=== PATIENT | female | born 1995 | race Caucasian/White ===

== ENCOUNTER 2018-12-02 09:24 | Emergency (ER) | payer OTHER, MEDICAID, SELFPAY ==
[2018-12-02 09:31] VITALS: BP 108/65; PULSE 97; RESP 18; TEMP 37.1; O2SAT 98; BMI 44.0
--- NOTE | 2018-12-02 09:31 | ED_ITS ---
HPI - Wound/Laceration General Chief Complaint: Wound/Laceration Stated Complaint: replace gauze in surgical incision Time Seen by Provider: 12/02/18 09:30 Source: patient Mode of arrival: ambulatory Limitations: no limitations History of Present Illness HPI narrative: Patient is a 23-year-old female who presents need for dressing change after pilonidal cyst removal 11/18/2018 in [place]. She is scheduled see her surgeon tomorrow. She has packing. She has had significant drainage and foul smell from it. She has no fevers no surrounding erythema. Related Data Previous Rx's Medication Instructions Recorded hydrocodone-acetaminophen 0 tab PO Q6HP PRN #15 tab 02/23/17 ondansetron [Zofran ODT] 4 mg SUBLINGUAL Q6HP PRN #20 odt 02/23/17 Allergies Allergy/AdvReac Type Severity Reaction Status Date / Time IV IODINE Allergy Unknown Uncoded 06/27/17 12:33 Review of Systems Review of Systems Narrative: GENERAL: Denies chills,fever HEENT: Denies throat pain RESPIRATORY: Denies dyspnea, cough, wheezing CARDIOVASCULAR: Denies chest pain, palpitations GASTROINTESTINAL: Denies nausea, vomiting MUSCULOSKELETAL: Denies extremity pain, injury SKIN: See HPI NEUROLOGIC: Denies weakness, dizziness, headache, numbness 8 point review of systems is negative except for those stated above and HPI [facility] Medical History Pilonidal cyst (Acute) Social History (Updated 12/02/18 @ 10:02 by Sahra Sy DO) Smoking Status: Never smoker alcohol intake: never substance use type: does not use Social History Smoking Status: Never smoker alcohol intake: never substance use type: does not use Exam Initial Vital Signs Initial Vital Signs: Vital Signs Temperature 98.8 F 12/02/18 09:31 Pulse Rate 97 H 12/02/18 09:31 Respiratory Rate 18 12/02/18 09:31 Blood Pressure 108/65 12/02/18 09:31 Pulse Oximetry 98 12/02/18 09:31 GENERAL: Well-appearing, well-nourished and in no acute distress. CARDIOVASCULAR: peripheral pulses in tact, cap refill <2 sec RESPIRATORY: No respiratory distress, speaks in full sentences without difficulty EXTREMITIES: Normal range of motion, no clubbing or edema. Neurovascularly intact NEUROLOGICAL: Cranial nerves II through XII grossly intact. Normal gait and speech. SKIN: Pilonidal cyst incision noted packing in place. No surrounding erythema foul smell. Significant drainage noted. Course Vital Signs Vital signs: Vital Signs - 8 hr 12/02/18 09:31 12/02/18 10:30 Temperature 98.8 F Pulse Rate 97 H 85 Respiratory Rate 18 14 Blood Pressure 108/65 107/70 Pulse Oximetry 98 98 MDM - Wound/Laceration MDM Narrative Medical decision making narrative: There is foul smell coming from incision however the wound itself and surrounding skin looks healthy. She has an appointment with her surgeon tomorrow. At this time I do not see any for antibiotics I will let her surgeons decided that tomorrow. She is given supplies. Discharge Plan Departure Patient Disposition: Home Clinical Impression: Pilonidal cyst Discharge Date/Time: 12/02/18 10:30 Instructions: Pilonidal Cyst, DI for Pilonidal Cyst Drainage and Removal Activity Restrictions/Additional Instructions: *You have been diagnosed with pilonidal cyst *What to do: Change dressing daily. At this time would wait to see her surgeon before starting antibiotics. Though it smells the typically do smell. The skin and the wound itself appear healthy. *Continue to take medications as directed *Follow up with your primary care provider in 2-3 days *Return to ER if you should have the skin becomes erythematous fevers chills shakes weakness or any new, worsening or concerning symptoms Prescriptions: No Action hydrocodone-acetaminophen 5 MG/325 MG tablet 0 tab PO Q6HP PRNQty: 15 RF: 0 ondansetron [Zofran ODT] 4 MG tablet,disintegrating 4 mg Sublingual Q6HP PRNQty: 20 RF: 0 Referrals: Alex Mukherjee MD [Primary Care Provider] -
[2018-12-02 10:30] VITALS: BP 107/70; PULSE 85; RESP 14; O2SAT 98
== END 2018-12-02 10:30 | disposition home or self-care (01) ==
PROVIDERS: Emergency Provider Emergency Medicine; PCP Family Medicine
DX: L05.91 Pilonidal cyst without abscess (principal); Z51.89 Encounter for other specified aftercare
CPT/HCPCS: 99282; 99283

== ENCOUNTER → 2018-12-06 09:01 | Outpatient (CLI) | payer OTHER, MEDICAID, SELFPAY ==
--- NOTE | 2018-12-06 | DI.MRI.S_ITS ---
PROCEDURE: MR KNEE LT WO CON INDICATIONS: CHRONIC PAIN OF LEFT ANKLE/LEFT KNEE INSTABILITY TECHNIQUE: Noncontrast sagittal PD fast spin echo and T2 fast spin echo with fat saturation, sagittal 3-D FLASH with fat saturation; coronal T1 spin echo and PD fast spin echo with fat saturation, and axial PD fast spin echo with fat saturation through the knee. COMPARISON: [facility], CR, XR KNEE 3 VIEWS LEFT, 11/20/2018, 15:13. FINDINGS: Image quality: Excellent. Menisci: There is detachment of the posterior horn medial meniscus, without tear. No evidence of lateral meniscal tear. Cruciate ligaments: The anterior and posterior cruciate ligaments appear intact. Medial structures: The medial collateral ligament appears intact. Visualized portions of the pes anserinus tendons appear normal. No abnormal bursal fluid. Lateral structures: The lateral collateral ligament, long and short heads of the biceps femoris tendon appear intact. The popliteus tendon appears normal. Iliotibial band appears normal. Anterior structures: The quadriceps and patellar tendons appear intact. Patellar alignment is normal. No femoral trochlear dysplasia or ventral trochlear prominence. No edema in the infrapatellar fat pad. Bones and cartilage: No bone marrow contusions or fractures. Moderate articular cartilage loss overlies the lateral patellar facet adjacent to the apex. Mild diffuse articular cartilage loss overlies the weightbearing aspects of the medial femoral condyle and medial tibial plateau. Joint space: There is a small knee joint effusion and a small IMPRESSION: 1. Attachment of the posterior horn medial meniscus without tear. 2. Medial compartment and lateral patellofemoral compartment articular cartilage loss. 3. Small Valenzuela's cyst. Dictated by: Mae Beckman M.D. on 12/06/2018 at 10:08 Approved by: Mae Beckman M.D. on 12/06/2018 at 10:10
--- NOTE | 2018-12-06 | DI.MRI.S_ITS ---
PROCEDURE: MR ANKLE LT WO CON INDICATIONS: CHRONIC PAIN OF LEFT ANKLE/LEFT KNEE INSTABILITY TECHNIQUE: Noncontrast sagittal T1 spin echo and T2 fast spin echo with fat saturation, axial proton density fast spin echo and T2 fast spin echo with fat saturation, coronal T1 spin echo and T2 fast spin echo with fat saturation through the ankle/hindfoot. COMPARISON: [facility], CR, XR ANKLE 3+ VIEWS LEFT, 10/07/2018, 18:15. FINDINGS: Image quality: Excellent. Bones and joints: No bone marrow contusions or fractures. No hindfoot coalitions. No osteochondral injuries of the talar dome. No pathologic joint effusions. Medial structures: The posterior tibialis, flexor digitorum longus, and flexor hallucis longus tendons are intact. The posterior tibial neurovascular bundle appears normal within the tarsal tunnel, without extrinsic mass effect. The deep layer (anterior and posterior tibiotalar ligaments) and superficial layer (tibionavicular, tibiospring, and tibiocalcaneal ligaments) of the deltoid ligament appear normal. The spring ligament components (superomedial calcaneonavicular, medioplantar oblique calcaneonavicular, and inferoplantar longitudinal ligaments) are intact. Lateral structures: The anterior talofibular, calcaneofibular, and posterior talofibular ligaments appear intact. More superiorly, the anterior and posterior tibiofibular ligaments appear intact, as is the intermalleolar ligament. The tibiofibular syndesmosis is normal in width at 2 mm or less. The peroneus longus and brevis tendons demonstrate normal location and morphology. Adjacent bony peroneal tubercle and retrotrochlear prominence are normal in size. The sinus tarsi demonstrates normal fatty signal, without edema, fibrosis, or cyst formation. Visualized sinus tarsi components (cervical ligament, interosseous talocalcaneal ligament, roots of the inferior extensor retinaculum) appear normal. The calcaneonavicular and calcaneocuboid components of the bifurcate ligament appear intact. The dorsal calcaneocuboid ligament appears intact. Anterior structures: The tibialis anterior, extensor hallucis longus, and extensor digitorum longus tendons appear intact. The dorsal talonavicular ligament appears intact. Posterior and plantar structures: Achilles tendon is intact. Small amount of fluid adjacent to the calcaneal insertion of the Achilles. Medial and lateral bands of the plantar fascia are of normal thickness. No abductor digiti quinti muscle atrophy to suggest Shea neuropathy. IMPRESSION: Mild insertional tendinitis of the Achilles. Otherwise negative examination of the ankle. No explanation for ankle pain. Dictated by: Mae Beckman M.D. on 12/06/2018 at 11:17 Approved by: Mae Beckman M.D. on 12/06/2018 at 11:19
== END ==
PROVIDERS: PCP Family Medicine; Visit Provider Physician Assistant Surgical
DX: M25.572 Pain in left ankle and joints of left foot (principal); M76.62 Achilles tendinitis, left leg; M23.52 Chronic instability of knee, left knee; G89.29 Other chronic pain
CPT/HCPCS: 73721

== ENCOUNTER 2018-12-06 10:34 | Emergency (ER) | payer OTHER, MEDICAID, SELFPAY ==
[2018-12-06 10:43] VITALS: BP 125/80; PULSE 91; RESP 18; TEMP 36.7; O2SAT 100
[2018-12-06 12:10] VITALS: BP 105/67; PULSE 91; RESP 20; O2SAT 98
--- NOTE | 2018-12-06 13:07 | ED.RECABL ---
HPI - Recheck/Abnormal Lab/Rx <GUILLAUME Nichole - Last Filed: 12/06/18 13:22> General Chief Complaint: Recheck/Abnormal Lab/Rx Stated Complaint: fever,chills,dizzy,headache,vomiting Time Seen by Provider: 12/06/18 10:40 Source: patient Mode of arrival: Ambulatory Limitations: no limitations History of Present Illness HPI narrative: This is a 23-year-old female, nonsmoker, who presents with family with chief complain of pilonidal cyst wound recheck after the surgery on 10/18/[address] Dread Nuñez in [place]. The patient reports had initial pilonidal cyst about 2.5 year ago when she was with her child and this has been recurring problem. She had another procedure done on 11/22/18 to remove seroma and drainage. Patient now has been referred to wound care at [facility] for repacking. She was not able to be seen 3 days ago due to no availability. Her wound has been draining well and our pat has been reinforced at home by her family member but they were concerned and presents to ED since the dressing appears to be black in color. Patient reports feeling dizzy, chills, subjective fever and had 1 episode of emesis. The pain has been well managed with the Naprosyn which she takes for knee pain. She is not currently on antibiotic medication or has history of diabetes. She has an appointment with Dr. Nuñez on12/24/18 and wound care clinic in 4 days for repacking. Related Data Home Medications Medication Instructions Recorded Confirmed azithromycin 250 mg PO DAILY 12/06/18 naproxen 500 mg PO BID PRN 12/06/18 12/06/18 Allergies Allergy/AdvReac Type Severity Reaction Status Date / Time IV IODINE Allergy Unknown Uncoded 06/27/17 12:33 Review of Systems <GUILLAUME Nichole - Last Filed: 12/06/18 13:22> Review of Systems ROS Unobtainable: All systems reviewed & are unremarkable except as noted in HPI and below PFSH <GUILLAUME Nichole - Last Filed: 12/06/18 13:22> Medical History Pilonidal cyst (Acute) Surgical History History of surgical removal of pilonidal cyst (Acute) Social History Smoking Status: Never smoker alcohol intake: never substance use type: does not use Social History Smoking Status: Never smoker alcohol intake: never substance use type: does not use Exam <GUILLAUME Nichole - Last Filed: 12/06/18 13:22> Narrative Exam Narrative: General appearance: well developed, well nourished, in no acute distress. Head: normocephalic, atraumatic, no scalp lesions, non-tender. Eye: pupil equal, round. EOMI. Nose: nares patent. Oral: mucosa moist. Neck/Thyroid: neck supple, full range of motion, no visible masses. Skin: s/p very large and deep pilonidial cyst surgical I&D packed with [id number] gauze and outer abdominal pad in light brown color with strong odor . Inner skin in beefy red color, no warmth or redness to adjacent tissue. Noticed so no suspicious rashes, lesions over other visible areas. Warm and dry. Heart: no clubbing, no cyanosis, no edema. Lungs: Breathing even and unlabored. No stridor. No accessory muscles used. Chest: normal shape and expansion. Abdomen: non-obese, non-distended. Neurologic: alert and oriented. 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 Psych: good eye contact, normal affect. Initial Vital Signs Initial Vital Signs: Vital Signs Temperature 98.0 F 12/06/18 10:43 Pulse Rate 91 H 12/06/18 10:43 Respiratory Rate 18 12/06/18 10:43 Blood Pressure 125/80 12/06/18 10:43 Pulse Oximetry 100 12/06/18 10:43 <Wayne Pedro DO - Last Filed: 12/06/18 19:57> Initial Vital Signs Initial Vital Signs: Vital Signs Temperature 98.0 F 12/06/18 10:43 Pulse Rate 91 H 12/06/18 10:43 Respiratory Rate 18 12/06/18 10:43 Blood Pressure 125/80 12/06/18 10:43 Pulse Oximetry 100 12/06/18 10:43 Course <CHANNING NicholeP - Last Filed: 12/06/18 13:22> Vital Signs Vital signs: Vital Signs - 8 hr 12/06/18 12:10 Pulse Rate 91 H Respiratory Rate 20 Blood Pressure 105/67 Pulse Oximetry 98 <Wayne DO [place] - Last Filed: 12/06/18 19:57> Vital Signs Vital signs: Vital Signs - 8 hr 12/06/18 12:10 Pulse Rate 91 H Respiratory Rate 20 Blood Pressure 105/67 Pulse Oximetry 98 MDM - Recheck/Abnormal Lab/Rx <CHANNING NicholeP - Last Filed: 12/06/18 13:22> Differential Diagnosis Differential diagnosis: Likely encounter for wound recheck Medical Records Attestation: I reviewed the patient's medical records. [facility] Narrative Medical decision making narrative: This 23-year-old female came in for recheck wound, pilonidal cyst surgeries that has been draining a copious amount with odorous drainage. The packing has not been changed 3 days ago as planned due to no availability at wound care. She was concerned that she may getting on infection from this. Dressing was removed and wound size were examed without obvious signs of infection. The packing dressing and outer abdominal pad were soaked with light brownish order was drainage. The pilonidal cyst was irrigated with normal saline and repacked with dry 4 x 4 gauze and covered with Sharri pads. Patient tolerated the procedure well and instructions given for home care. Patient advised to follow up with wound care in 4 days as scheduled and keep an appointment with Dr. Nuñez the surgeon. Return precautions were discussed with the patient and no further questions were expressed at this time the patient verbalized understanding. Discharge Plan Departure Patient Disposition: Home Clinical Impression: Encounter for wound re-check Discharge Date/Time: 12/06/18 12:12 Instructions: DI for Pilonidal Cyst Drainage and Removal Activity Restrictions/Additional Instructions: You have been diagnosed with [wound recheck on near pilonidal cyst. Keep dressing clean and dry as much as you can. Change pads if it is soaked. Warm pack should help with healing. It does not appears to be draining well and tissue appears be not infected]. What to do: *Take your medications as directed. No new medications to go home with today *Follow up with wound care provider on Sunday as scheduled. Let them know you were seen in the ED and that we asked you to be seen in follow up. *Return to ED if you have any new, worsening, or concerning symptoms, such as [fever, chills, worsening pain, feeling faint, chest pain, breathing difficulty, unable to tolerate fluids or any acute concerns]. Prescriptions: No Action azithromycin 250 mg tablet 250 mg PO DAILY RF: 0 naproxen 500 mg tablet 500 mg PO BID PRN (Reason: pain) RF: 0 Referrals: Alex Mukherjee MD [Primary Care Provider] -
== END 2018-12-06 12:12 | disposition home or self-care (01) ==
PROVIDERS: Emergency Provider Nurse Practitioner Family; PCP Family Medicine
DX: Z48.00 Encounter for change or removal of nonsurgical wound dressing (principal); M25.572 Pain in left ankle and joints of left foot; M25.562 Pain in left knee; M23.52 Chronic instability of knee, left knee; M76.62 Achilles tendinitis, left leg
CPT/HCPCS: 73721; 99282

== ENCOUNTER → 2018-12-10 13:58 | Outpatient (CLI) | payer OTHER, MEDICAID, SELFPAY | PROVIDERS: PCP Family Medicine; Visit Provider Family Medicine | DX: S31.000A Unspecified open wound of lower back and pelvis without penetration into retroperitoneum, initial encounter (principal); E66.01 Morbid (severe) obesity due to excess calories | CPT/HCPCS: 99203; 99214 ==

== ENCOUNTER → 2018-12-17 09:49 | Outpatient (CLI) | payer OTHER, MEDICAID, SELFPAY | PROVIDERS: PCP Family Medicine; Visit Provider Family Medicine | DX: S31.000A Unspecified open wound of lower back and pelvis without penetration into retroperitoneum, initial encounter (principal) | CPT/HCPCS: 97597 ==

== ENCOUNTER → 2018-12-18 11:02 | Outpatient (CLI) | payer OTHER, MEDICAID, SELFPAY | PROVIDERS: PCP Family Medicine; Visit Provider Family Medicine | DX: S31.000A Unspecified open wound of lower back and pelvis without penetration into retroperitoneum, initial encounter (principal) | CPT/HCPCS: 97605; 99213 ==

== ENCOUNTER → 2018-12-20 10:14 | Outpatient (CLI) | payer OTHER, MEDICAID, SELFPAY | PROVIDERS: PCP Family Medicine; Visit Provider Family Medicine | DX: S31.000D Unspecified open wound of lower back and pelvis without penetration into retroperitoneum, subsequent encounter (principal) | CPT/HCPCS: 99213 ==

== ENCOUNTER → 2018-12-24 10:37 | Outpatient (CLI) | payer OTHER, MEDICAID, SELFPAY | PROVIDERS: PCP Family Medicine; Visit Provider Family Medicine | DX: S31.000A Unspecified open wound of lower back and pelvis without penetration into retroperitoneum, initial encounter (principal); E66.01 Morbid (severe) obesity due to excess calories | CPT/HCPCS: 11042; 97605 ==

== ENCOUNTER → 2018-12-27 10:13 | Outpatient (CLI) | payer OTHER, MEDICAID, SELFPAY | PROVIDERS: PCP Family Medicine; Visit Provider Family Medicine | DX: S31.000A Unspecified open wound of lower back and pelvis without penetration into retroperitoneum, initial encounter (principal) | CPT/HCPCS: 97605 ==

== ENCOUNTER → 2018-12-30 09:38 | Outpatient (CLI) | payer OTHER, MEDICAID, SELFPAY | PROVIDERS: PCP Family Medicine; Visit Provider Family Medicine | DX: S31.000A Unspecified open wound of lower back and pelvis without penetration into retroperitoneum, initial encounter (principal) | CPT/HCPCS: 99213 ==

== ENCOUNTER → 2018-12-31 10:41 | Outpatient (CLI) | payer OTHER, MEDICAID, SELFPAY | PROVIDERS: PCP Family Medicine; Visit Provider Family Medicine | DX: S31.000A Unspecified open wound of lower back and pelvis without penetration into retroperitoneum, initial encounter (principal); E66.01 Morbid (severe) obesity due to excess calories | CPT/HCPCS: 97597 ==

== ENCOUNTER → 2019-01-07 13:01 | Outpatient (CLI) | payer OTHER, MEDICAID, SELFPAY | PROVIDERS: PCP Family Medicine; Visit Provider Family Medicine | DX: S31.000A Unspecified open wound of lower back and pelvis without penetration into retroperitoneum, initial encounter (principal) | CPT/HCPCS: 11042 ==

== ENCOUNTER → 2019-01-14 13:02 | Outpatient (CLI) | payer OTHER, MEDICAID, SELFPAY | PROVIDERS: PCP Family Medicine; Visit Provider Family Medicine | DX: S31.000A Unspecified open wound of lower back and pelvis without penetration into retroperitoneum, initial encounter (principal) | CPT/HCPCS: 17250 ==

== ENCOUNTER → 2019-01-17 10:35 | Outpatient (CLI) | payer OTHER, MEDICAID, SELFPAY | PROVIDERS: PCP Family Medicine; Visit Provider Family Medicine | DX: S31.000D Unspecified open wound of lower back and pelvis without penetration into retroperitoneum, subsequent encounter (principal) | CPT/HCPCS: 99213 ==

== ENCOUNTER → 2019-01-21 13:06 | Outpatient (CLI) | payer OTHER, MEDICAID, SELFPAY | PROVIDERS: PCP Family Medicine; Visit Provider Family Medicine | DX: S31.000D Unspecified open wound of lower back and pelvis without penetration into retroperitoneum, subsequent encounter (principal) | CPT/HCPCS: 99213 ==

== ENCOUNTER → 2019-01-28 12:58 | Outpatient (CLI) | payer OTHER, MEDICAID, SELFPAY | PROVIDERS: PCP Family Medicine; Visit Provider Family Medicine | DX: S31.000A Unspecified open wound of lower back and pelvis without penetration into retroperitoneum, initial encounter (principal) | CPT/HCPCS: 11042 ==

== ENCOUNTER → 2019-02-04 13:20 | Outpatient (CLI) | payer OTHER, MEDICAID, SELFPAY | PROVIDERS: PCP Family Medicine; Visit Provider Family Medicine | DX: S31.000A Unspecified open wound of lower back and pelvis without penetration into retroperitoneum, initial encounter (principal); E66.01 Morbid (severe) obesity due to excess calories | CPT/HCPCS: 99213 ==

== ENCOUNTER 2019-02-06 15:34 | Emergency (ER) | payer OTHER, MEDICAID, SELFPAY ==
[2019-02-06 15:39] VITALS: BP 133/78; PULSE 99; RESP 16; TEMP 36.9; O2SAT 100
--- NOTE | 2019-02-06 15:50 | DI.RAD.S_ITS ---
PROCEDURE: XR SHOULDER RT MIN 2V INDICATIONS: shoulder injury TECHNIQUE: 3 views of the shoulder were acquired. COMPARISON: [facility], CR, XR CLAVICLE RIGHT, 08/14/2018, 15:02. FINDINGS: Bones: No fractures or dislocations. No suspicious bony lesions. Visualized ribs appear intact. Soft tissues: No suspicious soft tissue calcifications. IMPRESSION: No fracture. No osseous lesion. If symptoms and/or clinical suspicion for pathology persists, further assessment with repeat radiographs (7-10 days) or advanced imaging (e.g. CT, MRI or bone scan) may be helpful. Dictated by: Erma Evangelista MD, PhD on 02/06/2019 at 16:31 Approved by: Erma Evangelista MD, PhD on 02/06/2019 at 16:35
--- NOTE | 2019-02-06 16:40 | ED.UPPEXIN ---
HPI - Extremity Injury (Upper) General Chief Complaint: Extremity Injury, Upper Stated Complaint: fell on right shoulder 2 days ago Time Seen by Provider: 02/06/19 16:28 Source: patient Mode of arrival: Ambulatory History of Present Illness HPI narrative: Patient is a 23-year-old female who presents with right shoulder pain. She says she slipped and fell yesterday. She heard some cracks and pops. She does have some numbness and tingling in her arm no other injury. She is able to move it some but in certain directions. complaint: injury to: right and shoulder Related Data Home Medications Medication Instructions Recorded Confirmed No Known Home Medications 02/06/19 02/06/19 Allergies Allergy/AdvReac Type Severity Reaction Status Date / Time diphenhydramine Allergy Mild Rash Verified 02/06/19 15:48 [From Benadryl] doxycycline Allergy Mild Rash Verified 02/06/19 15:48 etodolac Allergy Mild Rash Verified 02/06/19 15:48 IV IODINE Allergy Severe Anaphylaxis Uncoded 02/06/19 15:47 Review of Systems Review of Systems Narrative: GENERAL: Denies chills,fever HEENT: Denies throat pain RESPIRATORY: Denies dyspnea, cough, wheezing CARDIOVASCULAR: Denies chest pain, palpitations GASTROINTESTINAL: Denies nausea, vomiting MUSCULOSKELETAL: See HPI SKIN: No rash, no laceration, no pruritus NEUROLOGIC: Denies weakness, dizziness, headache, numbness 8 point review of systems is negative except for those stated above and HPI Patient History Medical History Pilonidal cyst (Acute) Surgical History History of surgical removal of pilonidal cyst (Acute) Social History Smoking Status: Never smoker alcohol intake: never substance use type: does not use alcohol intake frequency: 0-2 drinks per day Substance Use Type: marijuana Exam Initial Vital Signs Initial Vital Signs: Vital Signs Temperature 98.5 F 02/06/19 15:39 Pulse Rate 99 H 02/06/19 15:39 Respiratory Rate 16 02/06/19 15:39 Blood Pressure 133/78 02/06/19 15:39 Pulse Oximetry 100 02/06/19 15:39 GENERAL: Well-appearing, well-nourished and in no acute distress. CARDIOVASCULAR: peripheral pulses in tact, cap refill <2 sec RESPIRATORY: No respiratory distress, speaks in full sentences without difficulty EXTREMITIES: Normal range of motion, no clubbing or edema. Neurovascularly intact Right shoulder: Decreased abduction, decreased external rotation good flexion and extension no gross bony deformity neurovascularly intact strong distal radial pulse NEUROLOGICAL: Cranial nerves II through XII grossly intact. Normal gait and speech. SKIN: Warm, dry, no petechiae, no rashes or lesions. Course Orders Ordered: ED Orders 02/06/19 15:50 XR shoulder RT min 2V Stat Vital Signs Vital signs: Vital Signs - 8 hr 02/06/19 15:39 02/06/19 17:12 Temperature 98.5 F Pulse Rate 99 H 78 Respiratory Rate 16 16 Blood Pressure 133/78 128/76 Pulse Oximetry 100 99 MDM - Extremity Injury (Upper) Imaging Data Right shoulder: Radiologist's impression: PROCEDURE: XR SHOULDER RT MIN 2V INDICATIONS: shoulder injury TECHNIQUE: 3 views of the shoulder were acquired. COMPARISON: [facility], CR, XR CLAVICLE RIGHT, 08/14/2018, 15:02. FINDINGS: Bones: No fractures or dislocations. No suspicious bony lesions. Visualized ribs appear intact. Soft tissues: No suspicious soft tissue calcifications. IMPRESSION: No fracture. No osseous lesion. If symptoms and/or clinical suspicion for pathology persists, further assessment with repeat radiographs (7-10 days) or advanced imaging (e.g. CT, MRI or bone scan) may be helpful. Dictated by: Erma Evangelista MD, PhD on 02/06/2019 at 16:31 Discharge Plan Departure Patient Disposition: Home Clinical Impression: Sprain of right shoulder Qualifiers: Encounter type: initial encounter Shoulder sprain type: unspecified sprain Qualified Code(s): S43.401A - Unspecified sprain of right shoulder joint, initial encounter Discharge Date/Time: 02/06/19 17:14 Instructions: DI for Shoulder Sprain Activity Restrictions/Additional Instructions: *You have been diagnosed with right shoulder sprain *What to do: Increase activity as tolerated, may need MRI if still having pain in a few weeks please see your primary care provider about this *Continue to take medications as directed Ibuprofen 600 mg every 6-8 hours if needed for [id number] pain Tylenol 1000 mg every 4 hours if needed for [id number] pain *Follow up with your primary care provider in 2-3 days *Return to ER if you should have increasing pain weakness or any new, worsening or concerning symptoms Prescriptions: No Action No Known Home Medications RF: 0 Referrals: Alex Mukherjee MD [Primary Care Provider] -
[2019-02-06 17:12] VITALS: BP 128/76; PULSE 78; RESP 16; O2SAT 99
== END 2019-02-06 17:14 | disposition home or self-care (01) ==
PROVIDERS: Emergency Provider Emergency Medicine; PCP Family Medicine
DX: S43.401A Unspecified sprain of right shoulder joint, initial encounter (principal); W01.0XXA Fall on same level from slipping, tripping and stumbling without subsequent striking against object, initial encounter
CPT/HCPCS: 73030; 99282; 99283

== ENCOUNTER → 2019-02-11 10:19 | Outpatient (CLI) | payer OTHER, MEDICAID, SELFPAY | PROVIDERS: PCP Family Medicine; Visit Provider Family Medicine | DX: S31.000A Unspecified open wound of lower back and pelvis without penetration into retroperitoneum, initial encounter (principal) | CPT/HCPCS: 97597 ==

== ENCOUNTER → 2019-02-19 08:37 | Outpatient (CLI) | payer OTHER, MEDICAID, SELFPAY | PROVIDERS: PCP Family Medicine; Visit Provider Family Medicine | DX: S31.000D Unspecified open wound of lower back and pelvis without penetration into retroperitoneum, subsequent encounter (principal); L08.9 Local infection of the skin and subcutaneous tissue, unspecified | CPT/HCPCS: 87070; 87075; 87077; 87147; 87186; 87205; 99212; 99214 ==

== ENCOUNTER → 2019-02-26 08:42 | Outpatient (CLI) | payer OTHER, MEDICAID, SELFPAY | PROVIDERS: PCP Family Medicine; Visit Provider Family Medicine | DX: S31.000D Unspecified open wound of lower back and pelvis without penetration into retroperitoneum, subsequent encounter (principal) | CPT/HCPCS: 99212; 99213 ==

== ENCOUNTER → 2019-03-10 09:22 | Outpatient (CLI) | payer OTHER, MEDICAID, SELFPAY | PROVIDERS: PCP Family Medicine; Visit Provider Family Medicine | DX: S31.000A Unspecified open wound of lower back and pelvis without penetration into retroperitoneum, initial encounter (principal) | CPT/HCPCS: 15271; Q4110 ==

== ENCOUNTER 2019-03-13 15:47 | Emergency (ER) | payer OTHER, MEDICAID, SELFPAY ==
[2019-03-13 16:46] VITALS: BP 121/73; PULSE 93; RESP 16; TEMP 36.3; O2SAT 100; BMI 43.0
--- NOTE | 2019-03-13 16:51 | DI.RAD.S_ITS ---
PROCEDURE: XR SHOULDER RT MIN 2V INDICATIONS: fell TECHNIQUE: 3 views of the shoulder were acquired. COMPARISON: [facility], CR, XR SHOULDER RT MIN 2V, 02/06/2019, 15:48. FINDINGS: Bones: No fractures or dislocations. No suspicious bony lesions. Visualized ribs appear intact. Soft tissues: No suspicious soft tissue calcifications. IMPRESSION: No acute radiographic findings. If pain persists, followup imaging in 5-7 days is recommended to exclude occult fracture. Dictated by: Gina Rodriguez M.D. on 03/13/2019 at 16:12 Approved by: Gina Rodriguez M.D. on 03/13/2019 at 16:12
--- NOTE | 2019-03-13 18:10 | ED_ITS ---
HPI - Extremity Injury (Upper) General Chief Complaint: Extremity Injury, Upper Stated Complaint: fall in hospital 2 days ago, right should pain Time Seen by Provider: 03/13/19 18:09 Source: patient and family Mode of arrival: Ambulatory Limitations: no limitations History of Present Illness HPI narrative: 23-year-old female nonsmoker presents with family and a chief complaint of a fall resulting in shoulder pain. She states that she has had issues with her right shoulder for quite some time and her doctor thinks she has had a rotator cuff injury. She has had no numbness, tingling or weakness. A few days ago the patient slipped in the bathroom and fell onto her shoulder and worsen her symptoms. She has severe pain with any range of motion of her entire shoulder girdle and the pain now radiates down her lateral shoulder overlying the deltoid a bit. She denies any numbness, tingling or weakness and has no other complaint of injury from the fall. MD complaint: injury to: right and shoulder Onset (ago): day(s) Other Extremity Injury: Right: shoulder Handedness: right Place: other Severity: moderate Relieving factors: immobilization and rest Exacerbating factors: movement of extremity Context: fall and direct blow Associated symptoms: denies other symptoms Treatments prior to arrival: cold therapy and NSAIDS Related Data Home Medications Medication Instructions Recorded Confirmed naproxen 500 mg tablet 500 mg PO BID 02/15/19 03/13/19 cyclobenzaprine 5 mg PO DAILY 03/13/19 03/13/19 Previous Rx's Medication Instructions Recorded loperamide 2 mg capsule 2 mg PO Q4H #20 cap 02/15/19 ondansetron 4 mg disintegrating 4 mg PO BID PRN #10 tab 02/15/19 tablet Allergies Allergy/AdvReac Type Severity Reaction Status Date / Time diphenhydramine Allergy Mild Rash Verified 03/05/19 13:26 [From Benadryl] doxycycline Allergy Mild Rash Verified 03/05/19 13:26 etodolac Allergy Mild Rash Verified 03/05/19 13:26 IV IODINE Allergy Severe Anaphylaxis Uncoded 03/05/19 13:26 Review of Systems Constitutional Constitutional: Denies chills, Denies fatigue, Denies fever(s), Denies frequent falls, Denies lethargy and Denies weakness Eyes Eyes: Denies change in vision, Denies eye discharge, Denies irritation and Denies loss of vision ENT Ears, Nose, Mouth, and Throat: Denies change in voice, Denies dizziness, Denies neck pain, Denies sore throat and Denies throat swelling Cardiovascular Cardiovascular: Denies chest pain, Denies irregular heart rhythm, Denies lightheadedness, Denies palpitations, Denies dyspnea, Denies dyspnea on exertion and Denies orthopnea Respiratory Respiratory: Denies cough, Denies dyspnea, Denies dyspnea on exertion and Denies wheezing Gastrointestinal Gastrointestinal: Denies abdominal pain, Denies change in bowel habits, Denies diarrhea, Denies nausea and Denies vomiting Genitourinary Genitourinary: Denies hematuria, Denies flank pain, Denies urinary incontinence and Denies urinary urgency Musculoskeletal Musculoskeletal: Denies back pain, Reports limited range of motion, Denies muscle weakness, Denies neck pain, Denies numbness and Denies tingling Integumentary/Breasts Skin/Breast: Denies pruritus, Denies erythema, Denies rash and Denies wounds Neurologic Neurologic: Denies behavioral changes, Denies confusion, Denies dizziness, D enies frequent falls, Denies loss of vision, Denies numbness, Denies tingling and Denies weakness Psychiatric Psychiatric: Denies anxiety, Denies behavioral changes, Denies confusion, Denies depression, Denies homicidal ideation and Denies suicidal ideation Endocrine Endocrine: Denies fatigue, Denies flushing and Denies palpitations Hematologic/Lymphatic Hematologic/Lymphatic: Denies easy bruising Allergic/Immunologic Allergic/Immunologic: Denies urticaria, Denies throat swelling and Denies wheezing Patient History Medical History Pilonidal cyst (Acute) Surgical History History of surgical removal of pilonidal cyst (Acute) Social History Smoking Status: Never smoker alcohol intake: never substance use type: does not use Smoking Status: Never smoker alcohol intake frequency: 0-2 drinks per day Substance Use Type: marijuana Exam Narrative Exam Narrative: GEN: AOx3 and in mild distress EYES: Pupils are equal, round, and reactive to light and accommodation. Extraoccular muscles are intact bilaterally. There is no subconjunctival hemorrhage or exudate. CHEST: Lungs are clear to auscultation bilaterally and free of wheezes, rales, or rhonchi. Heart rate is regular rhythm, there are no murmurs, clicks, rubs, or gallops. There is no chest wall tenderness. ABD: Abdomen is soft and nontender. There is no guarding or rebound. Bowel sounds are normal in all 4 quadrants. There is no mass or organomegaly. EXT: Full but painful range of motion of the right shoulder with worsened pain in region of supraspinatus and biceps tendon. Closed, isolated and neurovascularly intact SKIN: Warm, pink, and dry. No erythema or rash Initial Vital Signs Initial Vital Signs: Vital Signs Temperature 97.4 F L 03/13/19 16:46 Pulse Rate 93 H 03/13/19 16:46 Respiratory Rate 16 03/13/19 16:46 Blood Pressure 121/73 03/13/19 16:46 Pulse Oximetry 100 03/13/19 16:46 Procedures Orthopedic Splinting/Casting Right Shoulder Xray: Side: right Upper Extremity Injury Location: shoulder Upper Extremity Immobilizer: sling/shoulder immobilizer Post splinting neuro exam: intact Post splinting vascular exam: intact Placed by: Nursing Course Orders Ordered: ED Orders 03/13/19 16:51 XR shoulder RT min 2V Stat Vital Signs Vital signs: Vital Signs - 8 hr 03/13/19 16:46 Temperature 97.4 F L Pulse Rate 93 H Respiratory Rate 16 Blood Pressure 121/73 Pulse Oximetry 100 MDM - Extremity Injury (Upper) Imaging Data Extremity x-ray #1: Radiologist's Impression: [address] [address] XRay Report Signed Patient: Blanca Lam FMR#: [id number] : 1995Acct:[id number] Age/Sex: 23 / FDate of Service: 03/13/19 Loc: ED Accession Number: [id number] Procedure: XR shoulder RT min 2V Ordering Provider: Sahra Sy D.O. PROCEDURE: XR SHOULDER RT MIN 2V INDICATIONS: fell TECHNIQUE: 3 views of the shoulder were acquired. COMPARISON: [facility], , XR SHOULDER RT MIN 2V, 02/06/2019, 15:48. FINDINGS: Bones: No fractures or dislocations. No suspicious bony lesions. Visualized ribs appear intact. Soft tissues: No suspicious soft tissue calcifications. IMPRESSION: No acute radiographic findings. If pain persists, followup imaging in 5-7 days is recommended to exclude occult fracture. Dictated by: Gina Rodriguez M.D. on 03/13/2019 at 16:12 Approved by: Gina Rodriguez M.D. on 03/13/2019 at 16:12 Discharge Plan Departure Patient Disposition: Home Clinical Impression: Rotator cuff injury Qualifiers: Encounter type: initial encounter Laterality: right Qualified Code(s): S46.001A - Unspecified injury of muscle(s) and tendon(s) of the rotator cuff of right shoulder, initial encounter Discharge Date/Time: 03/13/19 18:45 Instructions: DI for Shoulder Sprain Activity Restrictions/Additional Instructions: *You have been diagnosed with [acute on chronic right rotator cuff injury] *What to do: *Take medications as directed *Follow up with your primary care provider in 2-3 days, call for an appointment. Let them know you were seen in the Emergency Department and that we ask that you be seen in follow up. Additionally, I've given you contact information for [facility], please call for appointment *Return to ER if you should have any new, worsening or concerning symptoms Prescriptions: No Action naproxen 500 mg tablet 500 mg PO BID RF: 0 ondansetron 4 mg tablet,disintegrating 4 mg PO BID PRN (Reason: nausea and vomiting) Qty: 10 RF: 0 loperamide 2 mg capsule 2 mg PO Q4H Qty: 20 RF: 0 cyclobenzaprine 5 mg tablet 5 mg PO DAILY RF: 0 Referrals: Alex Mukherjee MD [Primary Care Provider] - Pranav Frank MD [Physician] -
[2019-03-13 18:13] VITALS: PULSE 67
[2019-03-13 18:45] VITALS: BP 107/72; PULSE 82; RESP 18; O2SAT 97
== END 2019-03-13 18:45 | disposition home or self-care (01) ==
PROVIDERS: Emergency Provider Emergency Medicine; PCP Family Medicine
DX: S46.001A Unspecified injury of muscle(s) and tendon(s) of the rotator cuff of right shoulder, initial encounter (principal); W01.0XXA Fall on same level from slipping, tripping and stumbling without subsequent striking against object, initial encounter
CPT/HCPCS: 73030; 99282; 99283

== ENCOUNTER → 2019-03-17 14:36 | Outpatient (CLI) | payer OTHER, MEDICAID, SELFPAY | PROVIDERS: PCP Family Medicine; Visit Provider Family Medicine | DX: S31.000A Unspecified open wound of lower back and pelvis without penetration into retroperitoneum, initial encounter (principal) | CPT/HCPCS: 15271; Q4110 ==

== ENCOUNTER → 2019-03-24 09:42 | Outpatient (CLI) | payer OTHER, MEDICAID, SELFPAY | PROVIDERS: PCP Family Medicine; Visit Provider Family Medicine | DX: S31.000A Unspecified open wound of lower back and pelvis without penetration into retroperitoneum, initial encounter (principal); E66.01 Morbid (severe) obesity due to excess calories | CPT/HCPCS: 99213 ==

== ENCOUNTER → 2019-03-28 05:50 | Outpatient (CLI) | payer OTHER, MEDICAID, SELFPAY ==
--- NOTE | 2019-03-28 | DI.MRI.S_ITS ---
PROCEDURE: MR SHOULDER RT WO CON INDICATIONS: RIGHT SHOULDER PAIN TECHNIQUE: Noncontrast oblique coronal T2 fast spin echo with fat saturation, oblique sagittal T1 spin echo and T2 fast spin echo with fat saturation, axial T1 spin echo and T2 fast spin echo with fat saturation through the shoulder. COMPARISON: [facility], CR, XR SHOULDER RT MIN 2V, 03/13/2019, 16:47. FINDINGS: Image quality: Excellent. Rotator cuff: The supraspinatus, infraspinatus, and subscapularis tendons appear intact throughout. Sagittal images demonstrate no muscle atrophy. Bones and bursae: No bone marrow contusions or fractures. There is mild acromioclavicular joint degeneration. The acromion demonstrates conventional anatomy, without an os acromiale. No pathologic subacromial-subdeltoid or subcoracoid bursal fluid is present. Capsule and soft tissues: In the absence of intra-articular contrast, the labrum and glenohumeral ligaments appear intact. The long head of the biceps tendon demonstrates normal location and moderate diffuse thinning. The rotator interval appears normal, without fibrosis. The coracohumeral ligament is normal in thickness. IMPRESSION: 1. No rotator cuff tear. 2. 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 Dictated by: Mae Beckman M.D. on 03/28/2019 at 8:43 Approved by: Mae Beckman M.D. on 03/28/2019 at 8:46
== END ==
PROVIDERS: PCP Family Medicine; Visit Provider Physician Assistant Surgical
DX: M25.511 Pain in right shoulder (principal); S46.211A Strain of muscle, fascia and tendon of other parts of biceps, right arm, initial encounter
CPT/HCPCS: 73221

== ENCOUNTER → 2019-03-31 09:12 | Outpatient (CLI) | payer OTHER, MEDICAID, SELFPAY | PROVIDERS: PCP Family Medicine; Visit Provider Family Medicine | DX: S31.000A Unspecified open wound of lower back and pelvis without penetration into retroperitoneum, initial encounter (principal); E66.01 Morbid (severe) obesity due to excess calories; Z68.41 Body mass index [BMI] 40.0-44.9, adult | CPT/HCPCS: 99213 ==

== ENCOUNTER 2019-09-04 14:31 | Outpatient (RCR) | payer OTHER, MEDICAID, SELFPAY ==
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
--- NOTE | 2019-09-16 16:20 | PT-OP ANOTE ---
Pt called re: no show and message was left re: no show. Pt informed of next scheduled appointment and asked to call and cancel if she is unable to make it.
--- NOTE | 2019-09-18 17:11 | PT-OP ANOTE ---
Pt called re: no show but transfered to message saying this person is not able to take calls at this time. No ability to leave message. If pt no shows appointment again, pt will be dc d/t noncompliance.
--- NOTE | 2019-09-23 16:48 | PT.OPDS ---
Current Diagnoses Impingement syndrome of right shoulder (09/04/19) Visit Care Team Role Provider Type Radha Herrera PA-C Attending Provider Non-Staff Referring Provider Specialty: Medical Address: [address] [place] [address], [place], [address] Email: Visit Number Visit Number 1 Discharge Summary PT-OP-T Assessment and Plan Start: 09/03/19 18:51 Freq: Status: Active Protocol: Document 09/23/19 16:46 [facility] (Rec: 09/23/19 16:48 [facility] [id number]) Physical Therapy Assessment Assessment Summary Assessment No change as pt did not attend any PT appointments past her IE. She no showed 3 appointments in a row and is dc at this time per clinic policy. Attempted to call pt but get recording which says pt unable to receive calls at this time. Physical Therapy Plan Discharge Physical Therapy Discharge Reasons No Longer Attending PT
== END 2019-09-24 07:41 ==
LOC: PHYS 14:31
PROVIDERS: Referring Provider Physician Assistant; Visit Provider Physician Assistant
DX: M75.41 Impingement syndrome of right shoulder (principal)
CPT/HCPCS: 97110; 97162

== ENCOUNTER 2020-08-16 16:02 | Emergency (ER) | payer OTHER, MEDICAID, SELFPAY ==
[2020-08-16 16:07] VITALS: BP 132/77; PULSE 112; RESP 20; TEMP 37.2; O2SAT 100
== END 2020-08-16 17:02 | disposition left against medical advice (07) ==
PROVIDERS: Emergency Provider Emergency Medicine
CPT/HCPCS: 99281

== ENCOUNTER 2021-01-23 09:25 | Emergency (ER) | payer OTHER, MEDICAID, SELFPAY ==
[2021-01-23 09:47] VITALS: BP 136/78; PULSE 85; RESP 18; TEMP 37.1; O2SAT 100; BMI 48.4
[2021-01-23 10:27] LABS: COVID19 -Nasal RAPID Negative (Negative)
== END 2021-01-23 10:20 | disposition left against medical advice (07) ==
PROVIDERS: Emergency Provider Emergency Medicine; PCP Physician Assistant
DX: J02.9 Acute pharyngitis, unspecified (principal); Z20.822 Contact with and (suspected) exposure to COVID-19
CPT/HCPCS: 87635; 87880; 99282; C9803